=== PATIENT | female | born 1980 | race Two or more races ===

== ENCOUNTER 2021-09-10 08:00 | Day surgery (SDC) | payer OTHER ==
[~2021-09-10] VITALS: Ht 160 cm; Wt 118.4 kg
[~2021-09-10 08:00] MED LIST: LABETALOL HCL100 MG PO; MEGACE PO
== END 2021-09-10 16:20 | disposition home or self-care (01) ==
LOC: CIR.AMB 08:00
PROVIDERS: ATTEND Specialist
DX: N85.00 Endometrial hyperplasia, unspecified (principal); Z20.822 Contact with and (suspected) exposure to COVID-19; I10 Essential (primary) hypertension; J45.909 Unspecified asthma, uncomplicated; E66.01 Morbid (severe) obesity due to excess calories